=== PATIENT | female | born 1995 | race Caucasian/White ===

== ENCOUNTER 2016-12-23 15:40 | Emergency (ER) | payer MEDICAID ==
[~2016-12-23] VITALS: Ht 152.4 cm; Wt 54.4 kg
[~2016-12-23 15:40] MED LIST: AMOX500C2 PO; BIRTH CONTROL PATCH; CEPH500T PO; IBP600T1 PO; LOSA25TA5 PO; METR500T21 PO; NF-CIPDEC OT; NITR-65 PO; ONDAN4ODT PO; PREN-136 PO
--- OUTSIDE RECORDS SUMMARY | 2016-12-23 15:47 | XMS REPORT | Continuity of Care Document ---
Author Author Mignon Crow Address Unknown Phone Unavailable Care Team Providers Care Sander And Polisher Name Role Phone [employer] Unavailable Unavailable Problems Problem Status Onset Date Classification Date Reported Comments Source No current problems or disability (context-dependent category) Active Problem 12/10/2015 [facility] Medications Allergies, Adverse Reactions, Alerts Immunizations Results Vital Signs Encounters Location Location Details Encounter Type Encounter Number Reason For Visit Attending Provider ADM Date DC Date Status Source [facility] REF [id number] Margaret Donald 07/08/20152014 Active [facility] Procedures Plan of Care Social History Assessment and Plan Family History Value Date Source Advance Directives Order Name Results Value Date Source
[2016-12-23 16:51] LABS: KETONES,URINE NEGATIVE (NEGATIVE); LEUKOCYTE ESTERASE ,URINE 2+ (NEGATIVE); NITRITE,URINE NEGATIVE (NEGATIVE); PH,URINE 5 (5-9); PROTEIN,URINE 2+ (NEGATIVE); UROBILINOGEN,URINE 1 MG/DL (NORMAL)
[2016-12-23 17:03] LABS: SQUAMOUS EPITHELIAL CELL,UR 0-2 /HPF
[2016-12-23 17:04] LABS: BASOPHILS % (AUTO) 0 % (0-10); EOSINOPHILS # (AUTO) 0.1 10^3/uL (0.0-0.3); EOSINOPHILS % (AUTO) 1 % (0-10); LYMPHOCYTES # (AUTO) 0.7 X 10^3 (1.0-4.0); LYMPHOCYTES % (AUTO) 9 % (12-44); MEAN CORPUSCULAR HEMOGLOBIN 30 PG (25-34); MEAN CORPUSCULAR HGB CONC 35 G/DL (32-36); MEAN CORPUSCULAR VOLUME 87 FL (80-99); MEAN PLATELET VOLUME 10.5 FL (7.4-10.4); MONOCYTES # (AUTO) 0.5 X 10^3 (0.0-1.0); MONOCYTES % (AUTO) 6 % (0-12); NEUTROPHILS # (AUTO) 6.8 X 10^3 (1.8-7.8); NEUTROPHILS % (AUTO) 84 % (42-75); PLATELET COUNT 178 10^3/uL (130-400); RED BLOOD COUNT 4.83 10^6/uL (4.35-5.85); RED CELL DISTRIBUTION WIDTH 11.8 % (10.0-14.5)
--- NOTE | 2016-12-23 17:08 | ED Abdominal Pain ---
General Chief Complaint: Abdominal/GI Problems Stated Complaint: ABD PAIN Nursing Triage Note: PT C/O ABDOMINAL PAIN, N,V,D VAGINAL BLEEDING, FOR 2 DAY. Sepsis Screen: No Definite Risk Source of Information: Patient (On) Exam Limitations: No Limitations History of Present Illness Time Seen By Provider: 17:07 Initial Comments To ER with suprapubic abdominal pain that radiates through to her back that began this morning as well as vaginal bleeding that she states is quite heavy. Her last period was at the end of last month so this would be early for her. She denies fevers or chills but she does have nausea. Timing/Duration: 1-2 Days Severity/Quality: Moderate Location: Suprapubic Radiation: No Radiation Activities at Onset: None Associated Symptoms: Nausea/Vomiting Allergies and Home Medications Allergies Coded Allergies: No Known Drug Allergies (Unverified , 08/26/11) Home Medications Amoxicillin 500 Mg Capsule #30 500 MG PO TID Prescribed by: TUNDE GARCIA on 03/19/162028 Ciprofloxacin HCl/Dexameth 7.5 Ml Soln #1 4 DROPS OT BID use x7 days Prescribed by: TUNDE GARCIA on 03/19/162030 Review of Systems Constitutional: see HPI EENTM: No Symptoms Reported Respiratory: No Symptoms Reported Cardiovascular: See HPI Gastrointestinal: See HPI Abdominal Pain Genitourinary: See HPI Musculoskeletal: no symptoms reported Skin: no symptoms reported Psychiatric/Neurological: No Symptoms Reported Endocrine: No Symptoms Reported Past Nycmnva-Wqfpfn-Tngbtr Hx Patient Social History Recent Foreign Travel: No Contact w/Someone Who Travel: No Recent Infectious Disease Expo: No Recent Hopitalizations: No Immunizations Up To Date Tetanus Booster (TDap): Unknown PED Vaccines UTD: Yes Seasonal Allergies Seasonal Allergies: No Surgeries HX Surgeries: Yes (CLEFT PALLETT) Respiratory Hx Respiratory Disorders: No Cardiovascular Hx Cardiac Disorders: No Neurological Hx Neurological Disorders: No Reproductive System Hx Reproductive Disorders: No (HAS IUD) HIV/AIDS: No 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: IUD Genitourinary Hx Genitourinary Disorders: No Gastrointestinal Hx Gastrointestinal Disorders: No Musculoskeletal Hx Musculoskeletal Disorders: No Endocrine Hx Endocrine Disorders: No Endocrine Disorders: Diabetes, Non-Insulin dep HEENT HX ENT Disorders: No Cancer Hx Cancer: No Psychosocial Hx Psychiatric Problems: No Integumentary HX Skin/Integumentary Disorder: No Blood Transfusions Hx Blood Disorders: No Adverse Reaction to a Blood Tr: No Family Medical History Family Medial History: Alcoholism 19 FATHER 19 MOTHER Cardiovascular disease 19 FATHER Drug abuse 19 FATHER 19 MOTHER Hypercholesterolemia 19 FATHER Hypertension 19 FATHER No Family History of: AIDS Abdominal aortic aneurysm Yoshi's disease Alzheimer's disease Aphasia Arthritis Asthma Cancer of mouth Cataracts Colon cancer Completed stroke Congenital disease Congenital heart disease Coronary thrombosis Cystic fibrosis Deafness or hearing loss Dementia Diabetes mellitus Dysphasia Fibrocystic disease of breast Gastroenteritis Glaucoma Headache disorder Infertility Kidney disease Myocardial infarction Neoplasm Not obtainable due to adoption Osteoporosis Parkinson's disease Prostate cancer Psychosocial problem Respiratory disorder Seizure disorder Severe allergy Thyroid disease Tuberculosis Visual disorder Physical Exam Vital Signs VS - Last 72 Hours, by Label 12/23/16 16:10 Temp 98.8 Pulse 95 Resp 18 B/P 124/94 Pulse Ox 95 O2 Delivery Room Air Capillary Refill : NONE General Appearance: WD/WN no apparent distress HEENT: PERRL/EOMI normal ENT inspection Neck: non-tender full range of motion Respiratory: no respiratory distress no accessory muscle use Cardiovascular: regular rate, rhythm no murmur Gastrointestinal: normal bowel sounds non tender soft Extremities: normal range of motion non-tender Neurologic/Psychiatric: alert normal mood/affect oriented x 3 Focused Exam Lactic Acid Level Laboratory Tests Test 12/23/16 16:57 Progress/Results/Core Measures Results/Orders Lab Results Laboratory Tests Test 12/23/16 16:44 12/23/16 16:57 Range/Units Urine Bacteria FEW H /HPF Urine Bilirubin 1+ H NEGATIVE Urine Casts NONE /LPF Urine Clarity CLEAR Urine Color YELLOW Urine Crystals NONE /LPF Urine Culture Indicated YES Urine Glucose (UA) NEGATIVE NEGATIVE Urine Ketones NEGATIVE NEGATIVE Urine Leukocyte Esterase 2+ H NEGATIVE Urine Mucus FEW /LPF Urine Nitrite NEGATIVE NEGATIVE Urine Test NEGATIVE NEGATIVE Urine Protein 2+ H NEGATIVE Urine RBC 10-25 H /HPF Urine RBC (Auto) 5+ H NEGATIVE Urine Specific [employer] 1.025 H 1.016-1.022 Urine Squamous Epithelial Cells 0-2 /HPF Urine Urobilinogen 1 NORMAL MG/DL Urine WBC 5-10 H /HPF Urine pH 5 5-9 Basophils # (Auto) 0.0 0.0-0.1 10^3/uL Basophils (%) (Auto) 0 0-10 % Eosinophils # (Auto) 0.1 0.0-0.3 10^3/uL Eosinophils (%) (Auto) 1 0-10 % Hematocrit 42 35-52 % Hemoglobin 14.5 11.5-16.0 G/DL Lymphocytes # (Auto) 0.7 L 1.0-4.0 X 10^3 Lymphocytes (%) (Auto) 9 L 12-44 % Mean Corpuscular Hemoglobin 30 25-34 PG Mean Corpuscular Hemoglobin Concent 35 32-36 G/DL Mean Corpuscular Volume 87 80-99 FL Mean Platelet Volume 10.5 H 7.4-10.4 FL Monocytes # (Auto) 0.5 0.0-1.0 X 10^3 Monocytes (%) (Auto) 6 0-12 % Neutrophils # (Auto) 6.8 1.8-7.8 X 10^3 Neutrophils (%) (Auto) 84 H 42-75 % Platelet Count 178 130-400 10^3/uL Red Blood Count 4.83 4.35-5.85 10^6/uL Red Cell Distribution Width 11.8 10.0-14.5 % White Blood Count 8.0 4.3-11.0 10^3/uL My Orders Orders-TUNDE GARCIA APRN Hcg,Qualitative Urine (12/23/16 17:06) Vital Signs/I&O Vital Sign - Last 12Hours 12/23/16 16:10 Temp 98.8 Pulse 95 Resp 18 B/P 124/94 Pulse Ox 95 O2 Delivery Room Air Blood Pressure Mean: 104 Departure Impression Impression: Primary Impression: irregular vaginal bleeding Additional Impression: Urinary tract infection Disposition: 01 HOME, SELF-CARE Condition: Stable Decision to Admit Reason: Admit from ER (General) Departure-Patient Inst. Decision time for Depature: 17:17 Referrals: [facility] (PCP/Family) Primary Care Physician Patient Instructions: Urinary Tract Infection, Adult (DC) Add. Discharge Instructions: 1. Return to ER for any concerns 2. Follow-up with your doctor next week 3. Antibiotic directed All discharge instructions reviewed with patient and/or family. Voiced understanding. Scripts Sulfamethoxazole/Trimethoprim (Bactrim Ds Tablet)1 Each Tablet1 Each PO BID #10 TAB Prov:TUNDE GARCIA APRN 12/23/16 TUNDE GARCIA APRN Dec 23, 2016 17:08
[2016-12-23] MEDS ORDERED: SULF1TAB35 PO (17:18)
[2016-12-23 17:22] LABS: ALANINE AMINOTRANSFERASE 22 U/L (0-55); ANION GAP 8 MMOL/L (5-14); ASPARTATE AMINO TRANSFERASE 20 U/L (5-34); BLOOD UREA NITROGEN 13 MG/DL (7-18); BUN/CREATININE RATIO 18; CALCIUM 8.5 MG/DL (8.5-10.1); CARBON DIOXIDE 24 MMOL/L (21-32); CHLORIDE 104 MMOL/L (98-107); CREATININE SERUM 0.74 MG/DL (0.60-1.30); GFR ESTIMATED > 60; GLUCOSE 95 MG/DL (70-105); POTASSIUM 3.8 MMOL/L (3.6-5.0); SODIUM 136 MMOL/L (135-145); TOTAL PROTEIN 6.7 G/DL (6.4-8.2)
[2016-12-23 17:34] VITALS: BP 124/94
[2016-12-24 07:45] LABS: BILIRUBIN,URINE 1+ (NEGATIVE)
== END 2016-12-23 17:32 | disposition home or self-care (01) ==
LOC: EDUNIT# 15:40 → ER 15:41
DX: N93.9 Abnormal uterine and vaginal bleeding, unspecified (principal); N39.0 Urinary tract infection, site not specified
CPT/HCPCS: 36415; 80053; 81000; 84703; 85025; 87088; 99282

== ENCOUNTER 2017-08-31 22:29 | Emergency (ER) | payer MEDICAID ==
[~2017-08-31] VITALS: Ht 152.4 cm; Wt 54.4 kg
[~2017-08-31 22:29] MED LIST changes: +SULF1TAB35 PO
--- OUTSIDE RECORDS SUMMARY | 2017-08-31 22:34 | XMS REPORT | Continuity of Care Document ---
Author Author [employer] Organization [facility] Address Unknown Phone Unavailable Care Team Providers Care Human Resources Office Manager Name Role Phone [employer] Unavailable Unavailable Problems Problem Status Onset Date Classification Date Reported Comments Source No current problems or disability (context-dependent category) Active Problem 12/10/2015 [facility] Medications Allergies, Adverse Reactions, Alerts Immunizations Results Vital Signs Encounters Procedures Plan of Care Social History Assessment and Plan Family History Value Date Source Advance Directives Order Name Results Value Date Source
--- OUTSIDE RECORDS SUMMARY | 2017-08-31 22:34 | XMS REPORT | Clinical Summary ---
Author Author [facility] Organization [facility] Address Unknown Phone Unavailable Care Team Providers Care Talent Development Specialist Name Role Phone PCP Unavailable Source Comments Some departments are not documenting in the electronic medical record. If you do not see the information that you expected, contact Release of Information in the Health Information Management department at [phone] for further assistance in locating additional records.[facility] Allergies No Known Allergies Current Medications Prescription Sig. Disp. Refills Start End Date Status Date VITS Take by mouth. Active W-CA,FE,FA(<1MG) ( VITAMIN PO) Active Problems Problem Noted Date Myopia 07/09/2014 Last Assessment & Plan: No evidence of retinal detachment today. 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 Previously she has been seen in the [facility] outreach clinic and last was seen on 12/17/2011. 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 There is question of genetic abnormality because she had a cleft palat and sternal abnormality at , however her biological mother was also on alcohol adn drugs during . She is here today to r/o retinal detachment bc she is being worked up for Sticklers. There is no evidence of retinal detachment today. Family History Medical History Relation Name Comments High Cholesterol Father Coronary Artery Disease Paternal Grandmother Relation Name Status Comments Brother Alive healthy Father Alive hyperlipidemia Mother liver failure related to drug and ETOH abuse (Age approx 35) Paternal Grandmother Alive history of CAD and several stents Social History Tobacco Use Types Packs/Day Years Used Date Never Smoker Smokeless Tobacco: Never Used Alcohol Use Drinks/Week oz/Week Comments No Sex Assigned at Date Recorded Not on file Last Filed Vital Signs Vital Sign Reading Time Taken Blood Pressure 132/65 06/08/2014 2:23 PM CDT Pulse 106 06/08/2014 2:23 PM CDT Temperature - - Respiratory Rate - - Oxygen Saturation 98% 05/11/2014 10:16 AM CDT Inhaled Oxygen - - Concentration Weight 58.5 kg (129 lb) 07/09/2014 11:14 AM CDT Height 152.4 cm (5') 07/09/2014 11:14 AM CDT Body Mass Index 25.19 07/09/2014 11:14 AM CDT Plan of Treatment Health Maintenance Due Date Last Done Comments PHYSICAL (COMPREHENSIVE) 2001 EXAM HPV VACCINES (1 of 3 - 2005 Female 3 Dose Series) PERTUSSIS VACCINE 2005 TETANUS VACCINE 2011 CERVICAL CANCER SCREENING 2015 INFLUENZA VACCINE 05/07/2017 Results Not on filefrom Last 3 Months
--- OUTSIDE RECORDS SUMMARY | 2017-08-31 22:34 | XMS REPORT ---
Author Author LUCIO AYERS Organization [employer] Address Unknown Phone Unavailable Care Team Providers Care Fruit Grader Operator Name Role Phone LUCIO AYERS CP Unavailable Allergies, Adverse Reactions, Alerts Substance Reaction Event Type N.K.D.A. 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 Medications Medication Code System Code Instructions Start Date End Date Status Dosage PredniSONE [facility] [address]-01 10 MG Orally Twice a day Jul 13, 2015Jul 1 tablet with food or milk Azithromycin [facility] [address]-67 250 MG Orally Once a day Jul 13, 2015 Jul 18, 2015 2 tablets on the first day, then 1 tablet daily for 4 days Procedures Procedure Coding System Code Date Office Visit, Est Pt., Level 3 CPT-4 28742 Jul 13, 2015 Vital Signs Date/Time: Jul 13, 2015 Temperature 98.2 F Weight 119.1 lbs Height 60 in BMI 23.26 Index Blood Pressure Diastolic 78 mmHg Blood Pressure Systolic 114 mmHg Cardiac Monitoring Heart Rate 76 bpm Results No Known Results Summary Purpose [employer] Submission
--- OUTSIDE RECORDS SUMMARY | 2017-08-31 22:34 | XMS REPORT ---
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 Unknown Non Drug Allergy Oct, Unknown SOCIAL HISTORY No smoking Hx information available PLAN OF CARE Activity Details Follow Up prn Reason: VITAL SIGNS Height 60 in 2016-10-12 Weight 124.0 lbs 2016-10-12 Temperature 97.6 degrees Fahrenheit 2016-10-12 Heart Rate 88 bpm 2016-10-12 Respiratory Rate 18 2016-10-12 BMI 24.21 kg/m2 2016-10-12 Blood pressure systolic 114 mmHg 2016-10-12 Blood pressure diastolic 68 mmHg 2016-10-12 MEDICATIONS Medication Instructions Dosage Frequency Start Date End Date Duration Status Amoxicillin 500 MG Orally every 12 hrs 1 capsule 12h Oct, Oct, 10 day(s) Active RESULTS Name Result Date Reference Range STREP A (IN HOUSE) 2016-10-12 STREP A positive Control + Lot # [id number] Exp date april 23 PROCEDURES Procedure Date Ordered Related Diagnosis Body Site STREP A ASSAY W/OPTIC Oct 12, 2016 Office Visit, Est Pt., Level 3 Oct 12, 2016 IMMUNIZATIONS No Known Immunizations
[2017-08-31 23:00] LABS: BILIRUBIN,URINE NEGATIVE (NEGATIVE); KETONES,URINE NEGATIVE (NEGATIVE); LEUKOCYTE ESTERASE ,URINE 1+ (NEGATIVE); NITRITE,URINE NEGATIVE (NEGATIVE); PH,URINE 6.5 (5-9); PROTEIN,URINE 1+ (NEGATIVE); UROBILINOGEN,URINE NORMAL (NORMAL)
[2017-08-31 23:08] LABS: WBC,URINE 0-2 /HPF
[2017-08-31] MEDS ORDERED: KETOROLAC 30 MG/ML VIAL IVP STA (23:19)
[2017-08-31] MEDS ORDERED: LACTATED RINGERS 1,000 ML IV ONE (23:19)
[2017-08-31 23:51] LABS: BASOPHILS % (AUTO) 0 % (0-10); EOSINOPHILS # (AUTO) 0.1 10^3/uL (0.0-0.3); EOSINOPHILS % (AUTO) 1 % (0-10); LYMPHOCYTES # (AUTO) 2.4 X 10^3 (1.0-4.0); LYMPHOCYTES % (AUTO) 25 % (12-44); MEAN CORPUSCULAR HEMOGLOBIN 30 PG (25-34); MEAN CORPUSCULAR HGB CONC 35 G/DL (32-36); MEAN CORPUSCULAR VOLUME 88 FL (80-99); MEAN PLATELET VOLUME 10.7 FL (7.4-10.4); MONOCYTES # (AUTO) 0.7 X 10^3 (0.0-1.0); MONOCYTES % (AUTO) 8 % (0-12); NEUTROPHILS # (AUTO) 6.3 X 10^3 (1.8-7.8); NEUTROPHILS % (AUTO) 66 % (42-75); PLATELET COUNT 218 10^3/uL (130-400); RED BLOOD COUNT 4.87 10^6/uL (4.35-5.85); RED CELL DISTRIBUTION WIDTH 11.6 % (10.0-14.5); WHITE BLOOD COUNT 9.6 10^3/uL (4.3-11.0)
[2017-09-01 00:05] LABS: ALANINE AMINOTRANSFERASE 17 U/L (0-55); ALBUMIN 4.4 GM/DL (3.2-4.5); AMYLASE 66 U/L (25-125); ANION GAP 9 MMOL/L (5-14); ASPARTATE AMINO TRANSFERASE 16 U/L (5-34); BILIRUBIN,TOTAL 0.7 MG/DL (0.1-1.0); BLOOD UREA NITROGEN 9 MG/DL (7-18); BUN/CREATININE RATIO 13; CARBON DIOXIDE 25 MMOL/L (21-32); CHLORIDE 108 MMOL/L (98-107); CREATININE SERUM 0.68 MG/DL (0.60-1.30); GFR ESTIMATED > 60; GLUCOSE 108 MG/DL (70-105); LIPASE 26 U/L (8-78); POTASSIUM 3.5 MMOL/L (3.6-5.0); SODIUM 142 MMOL/L (135-145); TOTAL PROTEIN 7.5 GM/DL (6.4-8.2)
[2017-09-01] MEDS ORDERED: HYOS0.1283 SL (00:42)
[2017-09-01] MEDS ORDERED: ONDA4TAB8 PO (00:42)
[2017-09-01] MEDS ORDERED: RX-ONDANSETRON 4 MG ODT (ZOFRAN) PPK #4 PO STA (00:43)
[2017-09-01] MEDS ORDERED: RX-HYOSCYAMINE 0.125 MG SL (LEVSIN) PPK#6 SL STA (00:43)
--- NOTE | 2017-09-01 00:43 | ED GI ---
General Chief Complaint: Abdominal/GI Problems Stated Complaint: ABD PAIN Nursing Triage Note: ABDOMINAL BLOATING/CRAMPING X2 DAYS Sepsis Screen: No Definite Risk Source of Information: Patient History of Present Illness Time Seen By Provider: 22:44 Initial Comments C/O ABDOMINAL CRAMPING AND BLOATING SINCE YESTERDAY AFTERNOON PAIN IS MOSTLY IN UPPER ABDOMEN AND RADIATES AROUND TO BILATERAL FLANKS PAIN IS WORSE WITH MOVEMENTS, NOTHING IMPROVES PAIN HAS NOT TAKEN ANYTHING FOR SYMPTOMS NO HISTORY OF SIMILAR + NAUSEA, NO VOMITING NO DIARRHEA--HAD BM LAST PM NO FEVER NO URINARY SYMPTOMS ATE SANDWICH AT NOON, CHIPS JUST PRIOR TO ARRIVAL, PLUS TEA LMP 1 WEEK AGO, NORMAL. IUD IN PLACE X 2 YEARS. PCP:JAGDEEP Allergies and Home Medications Allergies Coded Allergies: No Known Drug Allergies (Unverified , 08/26/11) Home Medications Hyoscyamine Sulfate 0.125 Mg Tab.subl, 1-2 TAB SL Q4H, #10 Prescribed by: DARLINE ZAMORA on 09/01/17 0042 Ondansetron 4 Mg Tab.rapdis, 4 MG PO Q4H, #10 Prescribed by: DARLINE ZAMORA on 09/01/17 0042 Review of Systems Constitutional: no symptoms reported Cardiovascular: No Symptoms Reported Gastrointestinal: See HPI, Abdominal Pain, Denies Constipated, Denies Diarrhea , Nausea, Denies Poor Appetite, Denies Poor Fluid Intake, Denies Vomiting Genitourinary: No Symptoms Reported Musculoskeletal: see HPI, back pain Skin: no symptoms reported Psychiatric/Neurological: No Symptoms Reported Endocrine: No Symptoms Reported Hematologic/Lymphatic: No Symptoms Reported Past Ambqxvn-Ylbngt-Tqoiky Hx Patient Social History Alcohol Use: Denies Use Recreational Drug Use: No Smoking Status: Never a Smoker 2nd Hand Smoke Exposure: No Recent Foreign Travel: No Contact w/Someone Who Travel: No Recent Infectious Disease Expo: No Recent Hopitalizations: No Immunizations Up To Date Tetanus Booster (TDap): Unknown PED Vaccines UTD: Yes Seasonal Allergies Seasonal Allergies: No Surgeries History of Surgeries: Yes (CLEFT PALATE REPAIR) Respiratory History of Respiratory Disorde: No Cardiovascular History of Cardiac Disorders: No (POSSIBLE LOEYS-BAILEY SYNDROME VS STICKLER SYNDROME--CONNECTIVE TISSUE DISORDER. NO SURGERY. NORMAL ECHO 03/2013) Neurological History of Neurological Disord: No Reproductive System : No Hx Reproductive Disorders: No (HAS IUD) HIV/AIDS: No CERTIFIED TUMOR REGISTRAR History: IUD Genitourinary History of Genitourinary Disor: Yes (HORSESHOE KIDNEY) Gastrointestinal History of Gastrointestinal Di: No Musculoskeletal History of Musculoskeletal Dis: No (POSSIBLE LOEYS-BAILEY SYNDROME VS STICKLER SYNDROME- CONNECTIVE TISSUE DISORDER) Endocrine History of Endocrine Disorders: No HEENT History of HEENT Disorders: Yes (CLEFT PALATE--S/P REPAIR AGE 1 ) Cancer History of Cancer: No Psychosocial History of Psychiatric Problem: No Integumentary History of Skin or Integumenta: No Blood Transfusions History of Blood Disorders: No Adverse Reaction to a Blood Tr: No Family Medical History Family Medial History: Alcoholism 19 FATHER 19 MOTHER Cardiovascular disease 19 FATHER Drug abuse 19 FATHER 19 MOTHER Hypercholesterolemia 19 FATHER Hypertension 19 FATHER No Family History of: AIDS Abdominal aortic aneurysm Yoshi's disease Alzheimer's disease Aphasia Arthritis Asthma Cancer of mouth Cataracts Colon cancer Completed stroke Congenital disease Congenital heart disease Coronary thrombosis Cystic fibrosis Deafness or hearing loss Dementia Diabetes mellitus Dysphasia Fibrocystic disease of breast Gastroenteritis Glaucoma Headache disorder Infertility Kidney disease Myocardial infarction Neoplasm Not obtainable due to adoption Osteoporosis Parkinson's disease Prostate cancer Psychosocial problem Respiratory disorder Seizure disorder Severe allergy Thyroid disease Tuberculosis Visual disorder Physical Exam Vital Signs VS - Last 72 Hours, by Label 08/31/17 09/01/17 22:41 00:54 Temp 97.7 98.0 Pulse 72 57 Resp 18 16 B/P (MAP) 152/95 Pulse Ox 99 100 O2 Delivery Room Air Room Air Capillary Refill : Less Than 3 Seconds General Appearance: WD/WN, no apparent distress HEENT: PERRL/EOMI, other (ORAL MUCOSA MOIST) Neck: normal inspection Respiratory: normal breath sounds, no respiratory distress, no accessory muscle use Cardiovascular: regular rate, rhythm, no murmur Gastrointestinal: normal bowel sounds, soft, no organomegaly, no pulsatile mass , No distended, No guarding, No rebound, tenderness (MILD DIFFUSE TENDERNESS, MOST TENDER IN EPIGASTRIC AND SUPRAPUBIC AREAS), No hernia, No mass Extremities: normal inspection Back: no CVA tenderness Neurologic/Psychiatric: tubing tester II-XII nml as tested, no motor/sensory deficits, alert, normal mood/affect, oriented x 3 Skin: normal color, warm/dry, No rash Progress/Results/Core Measures Results/Orders Lab Results Laboratory Tests Test 08/31/17 22:45 08/31/17 23:30 Range/Units Urine Color YELLOW Urine Clarity CLEAR Urine pH 6.5 5-9 Urine Specific [place] 1.020 1.016-1.022 Urine Protein 1+ H NEGATIVE Urine Glucose (UA) 2+ H NEGATIVE Urine Ketones NEGATIVE NEGATIVE Urine Nitrite NEGATIVE NEGATIVE Urine Bilirubin NEGATIVE NEGATIVE Urine Urobilinogen NORMAL NORMAL MG/DL Urine Leukocyte Esterase 1+ H NEGATIVE Urine RBC (Auto) 4+ H NEGATIVE Urine RBC 50-100 H /HPF Urine WBC 0-2 /HPF Urine Squamous Epithelial Cells 5-10 /HPF Urine Crystals NONE /LPF Urine Bacteria TRACE /HPF Urine Casts NONE /LPF Urine Mucus NEGATIVE /LPF Urine Culture Indicated NO Urine Test NEGATIVE NEGATIVE Urine Opiates Screen NEGATIVE NEGATIVE Urine Oxycodone Screen NEGATIVE NEGATIVE Urine Methadone Screen NEGATIVE NEGATIVE Urine Propoxyphene Screen NEGATIVE NEGATIVE Urine Barbiturates Screen NEGATIVE NEGATIVE Ur Tricyclic Antidepressants Screen NEGATIVE NEGATIVE Urine Phencyclidine Screen NEGATIVE NEGATIVE Urine Amphetamines Screen NEGATIVE NEGATIVE Urine Methamphetamines Screen NEGATIVE NEGATIVE Urine Benzodiazepines Screen NEGATIVE NEGATIVE Urine Cocaine Screen NEGATIVE NEGATIVE Urine Cannabinoids Screen NEGATIVE NEGATIVE White Blood Count 9.6 4.3-11.0 10^3/uL Red Blood Count 4.87 4.35-5.85 10^6/uL Hemoglobin 14.8 11.5-16.0 G/DL Hematocrit 43 35-52 % Mean Corpuscular Volume 88 80-99 FL Mean Corpuscular Hemoglobin 30 25-34 PG Mean Corpuscular Hemoglobin Concent 35 32-36 G/DL Red Cell Distribution Width 11.6 10.0-14.5 % Platelet Count 218 130-400 10^3/uL Mean Platelet Volume 10.7 H 7.4-10.4 FL Neutrophils (%) (Auto) 66 42-75 % Lymphocytes (%) (Auto) 25 12-44 % Monocytes (%) (Auto) 8 0-12 % Eosinophils (%) (Auto) 1 0-10 % Basophils (%) (Auto) 0 0-10 % Neutrophils # (Auto) 6.3 1.8-7.8 X 10^3 Lymphocytes # (Auto) 2.4 1.0-4.0 X 10^3 Monocytes # (Auto) 0.7 0.0-1.0 X 10^3 Eosinophils # (Auto) 0.1 0.0-0.3 10^3/uL Basophils # (Auto) 0.0 0.0-0.1 10^3/uL Sodium Level 142 135-145 MMOL/L Potassium Level 3.5 L 3.6-5.0 MMOL/L Chloride Level 108 H 98-107 MMOL/L Carbon Dioxide Level 25 21-32 MMOL/L Anion Gap 9 5-14 MMOL/L Blood Urea Nitrogen 9 7-18 MG/DL Creatinine 0.68 0.60-1.30 MG/DL Estimat Glomerular Filtration Rate > 60 BUN/Creatinine Ratio 13 Glucose Level 108 H 70-105 MG/DL Calcium Level 9.0 8.5-10.1 MG/DL Total Bilirubin 0.7 0.1-1.0 MG/DL Aspartate Amino Transf (AST/SGOT) 16 5-34 U/L Alanine Aminotransferase (ALT/SGPT) 17 0-55 U/L Alkaline Phosphatase 67 40-136 U/L Total Protein 7.5 6.4-8.2 GM/DL Albumin 4.4 3.2-4.5 GM/DL Amylase Level 66 25-125 U/L Lipase 26 8-78 U/L My Orders Orders - DARLINE ZAMORA DO Drug Screen Stat (Urine) (08/31/17 22:54) Hcg,Qualitative Urine (08/31/17 22:54) Ua Culture If Indicated (08/31/17 22:54) Amylase (08/31/17 23:19) Cbc With Automated Diff (08/31/17 23:19) Comprehensive Metabolic Panel (08/31/17 23:19) Lipase (08/31/17 23:19) Ct Abd/Pelvis Wo(Kidney Stone) (08/31/17 23:19) Abdomen/Kub 1view (08/31/17 23:19) Saline Lock/Iv-Start (08/31/17 23:19) Lactated Ringers (Lr 1000 Ml Iv Solution (08/31/17 23:19) Ketorolac Injection (Toradol Injection) (08/31/17 23:19) Rx-Hyoscyamine Tab (Rx-Levsin Sl) (09/01/17 00:43) Rx-Ondansetron Po (Rx-Zofran Po) (09/01/17 00:43) Medications Given in ED Current Medications Medications Dose Ordered Sig/Cristóbal Route Start Time Stop Time Status Last Admin Dose Admin Lactated Ringer's 1,000 ml @ 0 mls/hr Q0M ONCE IV 08/31/17 23:19 08/31/17 23:21 DC 08/31/17 23:26 0 MLS/HR Vital Signs/I&O Vital Sign - Last 12Hours 08/31/17 09/01/17 22:41 00:54 Temp 97.7 98.0 Pulse 72 57 Resp 18 16 B/P (MAP) 152/95 Pulse Ox 99 100 O2 Delivery Room Air Room Air Blood Pressure Mean: 114 Progress Note : Progress Note SYMPTOMS RESOLVED WITH MEDICATION Diagnostic Imaging Comments KUB--CONSTIPATION, OTHERWISE NO ACUTE PROCESS, PENDING RADIOLOGIST REVIEW CT ABDOMEN/PELVIS--NO ACUTE PROCESS, CONSTIPATION, HORSESHOE KIDNEY--PER [facility] VIA FAX @ [id number] Reviewed: Reviewed by Me Departure Impression Impression: Primary Impression: Gastroenteritis Additional Impression: Microscopic hematuria Disposition: HOME, SELF-CARE Condition: Improved Departure-Patient Inst. Referrals: [facility] Patient Instructions: Blood in the Urine (Hematuria), Adult (DC), [id number], Viral Gastroenteritis, Adult (DC) Add. Discharge Instructions: CLEAR LIQUIDS FOR 24 HOURS--WATER, BROTH,JELLO, GATORADE AFTER 24 HOURS, IF YOU ARE BETTER, ADD BRATS DIET TO CLEAR LIQUIDS--BANANAS, RICE, APPLESAUCE, TOAST, SALTINES FOLLOW UP WITH [facility] IN 2-3 DAYS IF NO BETTER, OTHERWISE FOLLOW UP IN 1-2 WEEKS FOR RECHECK OF HEMATURIA All discharge instructions reviewed with patient and/or family. Voiced understanding. Scripts Hyoscyamine Sulfate (Levsin-Sl) 0.125 Mg Tab.subl 1-2 TAB SL Q4H for Abdominal Pain, #10 TAB Prov: DARLINE ZAMORA DO 09/01/17 Ondansetron (Zofran Odt) 4 Mg Tab.rapdis 4 MG PO Q4H for Nausea/Vomiting, #10 TAB Prov: DARLINE ZAMORA DO 09/01/17 DARLINE ZAMORA DO Sep 01, 2017 00:43
[2017-09-01 00:54] VITALS: BP 122/86
--- NOTE | 2017-09-01 06:31 | Diagnostic Imaging Report ---
PROCEDURE: CT urinary tract, rule out kidney stone. TECHNIQUE: Multiple contiguous axial images were obtained through the abdomen and pelvis without the use of intravenous contrast. INDICATION: Abdominal bloating and cramping. COMPARISON: 08/18/2008 FINDINGS: The lung bases are clear. The liver, gallbladder, pancreas, spleen and adrenal glands appear unremarkable. There is a horseshoe kidney. No obstructive change or stone is seen. There is moderate amount of stool in the colon. Bowel is otherwise unremarkable. The appendix is partially visualized and appears unremarkable. No focal inflammatory process is seen. There is an intrauterine device seen in the uterus. There is a 1.5 cm cyst or dominant follicle seen in the left adnexa. No acute inflammatory process is seen. There is no free fluid, free air or adenopathy. There is a small fat-containing umbilical hernia. IMPRESSION: 1. No acute abnormality is demonstrated. 2. Horseshoe kidney is noted. 3. Small fat-containing umbilical hernia. 4. Small left adnexal cyst. Agree with [facility] interpretation. Dictated by: Dictated on workstation # [id number]
--- NOTE | 2017-09-01 07:56 | Diagnostic Imaging Report ---
Indication: Bloating and pain Comparison: None Findings: A single frontal view of the abdomen is obtained. There is a mild amount of stool in the distal colon. The bowel gas pattern is otherwise unremarkable. No abnormal calcifications are suspected. There is an intrauterine device seen over the pelvis. Osseous structures appear unremarkable. Impression: No acute abdominal abnormalities demonstrated. Dictated by: Dictated on workstation # [id number]
== END 2017-09-01 00:54 | disposition home or self-care (01) ==
LOC: EDUNIT# 22:29 → ER 22:30
DX: K52.9 Noninfective gastroenteritis and colitis, unspecified (principal); R31.21 Asymptomatic microscopic hematuria; Z97.5 Presence of (intrauterine) contraceptive device; Z82.49 Family history of ischemic heart disease and other diseases of the circulatory system
CPT/HCPCS: 36415; 74000; 74176; 80053; 80306; 81000; 82150; 83690; 84703; 85025